=== PATIENT | male | born 1970 | race Caucasian/White ===

== ENCOUNTER 2019-01-17 22:08 | Emergency (ER) | payer BC ==
[~2019-01-17] VITALS: Ht 167.6 cm; Wt 73.0 kg
[2019-01-18] MEDS ORDERED: LIDOCAINE HCL 2% 5ML SYRINGE IV ONE (00:30)
[2019-01-18] MEDS ORDERED: LIDOCAINE HCL/PF 2% 20 MG/ML 10ML VIAL IJ SCH (01:00)
[2019-01-18 02:15] VITALS: BP 121/79
== END 2019-01-18 02:16 | disposition home or self-care (01) ==
LOC: ER 22:08
DX: S61.217A Laceration without foreign body of left little finger without damage to nail, initial encounter (principal); X58.XXXA Exposure to other specified factors, initial encounter; Y93.89 Activity, other specified; Y92.89 Other specified places as the place of occurrence of the external cause; Y99.8 Other external cause status; Z87.891 Personal history of nicotine dependence
CPT/HCPCS: 12001; 99283; A4217; J3490; Z7610